=== PATIENT | female | born 1995 | race Two or more races ===

== ENCOUNTER 2024-10-23 08:03 | Emergency (ER) | payer MEDICAID, SELFPAY ==
[2024-10-23 08:12] VITALS: BP 106/70; PULSE 63; RESP 17; TEMP 37.6; O2SAT 100; BMI 26.5
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
== END 2024-10-23 09:37 | disposition home or self-care (01) ==
PROVIDERS: Emergency Provider Emergency Medicine
DX: Z02.89 Encounter for other administrative examinations (principal); S13.4XXA Sprain of ligaments of cervical spine, initial encounter; S09.90XA Unspecified injury of head, initial encounter; V89.9XXA Person injured in unspecified vehicle accident, initial encounter
CPT/HCPCS: 70450; 72125; 99283